=== PATIENT | female | born 1955 | race Caucasian/White ===

== ENCOUNTER 2021-08-25 04:23 | Day surgery (SDC) | payer BC, OTHER ==
[2021-08-22 13:44] VITALS: BMI 22.2
[2021-08-25 13:41] VITALS: TEMP 98.4
[2021-08-25 13:42] VITALS: BP 102/57; PULSE 67
== END 2021-08-25 12:12 | disposition home or self-care (01) ==
LOC: JASU-ENDO 04:23
PROVIDERS: ATTEND Internal Medicine Gastroenterology
PROC: 0DJD8ZZ Inspection of Lower Intestinal Tract, Via Natural or Artificial Opening Endoscopic (ICD-10-PCS; principal; 2021-08-25 08:30)
DX: Z12.11 Encounter for screening for malignant neoplasm of colon (principal); Z86.010 Personal history of colon polyps; K64.8 Other hemorrhoids; K63.89 Other specified diseases of intestine

== ENCOUNTER 2022-06-01 14:26 | Emergency (ER) | payer OTHER, BC ==
[2022-06-01 14:46] VITALS: BP 136/78; PULSE 92; RESP 17; TEMP 98.1; BMI 21.6
[2022-06-01] MEDS ORDERED: ACETAMINOPHEN 325 MG TABLET (FP) PO ONE (16:09)
[2022-06-01] MEDS ORDERED: ACETAMINOPHEN 325 MG TABLET (FP) ONE (16:10)
== END 2022-06-01 17:45 | disposition home or self-care (01) ==
LOC: JER 14:26 → JERFT 14:26
DX: M54.6 Pain in thoracic spine (principal); V48.5XXA Car driver injured in noncollision transport accident in traffic accident, initial encounter
CPT/HCPCS: 71046-TC-FY; 99283-25